=== PATIENT | female | born 1955 | race Hispanic/Latino ===

== ENCOUNTER 2020-09-25 00:43 | Emergency (ER) | payer BC ==
[~2020-09-25] VITALS: Ht 152.4 cm; Wt 73.5 kg
[2020-09-25 00:52] VITALS: BP 109/50
[2020-09-25 02:06] VITALS: BP 112/62
[2020-09-25] MEDS ORDERED: TETANUS/DIPHTHERIA TOXOID [ADULT] 0.5 ML VIAL IM ONE (03:15)
[2020-09-25] MEDS ORDERED: SULFAMETHOX-TMP DS 800/160 TAB PO SCH (03:15)
[2020-09-25] MEDS ORDERED: SULF1TAB42 PO (03:18)
[2020-09-25 03:43] VITALS: BP 128/76
== END 2020-09-25 03:48 | disposition home or self-care (01) ==
LOC: EDH 00:51
DX: S40.021A Contusion of right upper arm, initial encounter (principal); E03.9 Hypothyroidism, unspecified; E11.9 Type 2 diabetes mellitus without complications; Z91.041 Radiographic dye allergy status; Z90.710 Acquired absence of both cervix and uterus; W11.XXXA Fall on and from ladder, initial encounter; Y93.89 Activity, other specified; Y92.89 Other specified places as the place of occurrence of the external cause; Y99.8 Other external cause status
CPT/HCPCS: 73060; 90471; 90714

== ENCOUNTER 2021-06-26 04:37 | Observation (INO) | payer BC ==
[~2021-06-26] VITALS: Ht 152.4 cm; Wt 73.0 kg
[~2021-06-26 04:37] MED LIST: SULF1TAB42 PO
[2021-06-26] MEDS ORDERED: ONDANSETRON 4MG INJ IVP ONE (05:00)
[2021-06-26] MEDS ORDERED: MORPHINE 4 MG SYG IV ONE (05:00)
[2021-06-26 05:07] LABS: BASOPHILS % (AUTO) 0.4 % (0.0-5.0); EOSINOPHILS % (AUTO) 1.4 % (0.0-8.0); HEMATOCRIT 43.1 % (36-48); LYMPHOCYTES % (AUTO) 14.7 % (21.0-51.0); MEAN CORPUSCULAR HEMOGLOBIN 31.4 pg (27.0-33.0); MEAN CORPUSCULAR HGB CONC 34.6 g/dL (32.0-36.0); MEAN CORPUSCULAR VOLUME 90.9 fL (79-99); MONOCYTES % (AUTO) 7.8 % (3.0-13.0); NEUTROPHILS % (AUTO) 75.2 % (40.0-77.0); PLATELET COUNT (AUTO) 203 K/uL (130-400); RED BLOOD CELL COUNT(AUTO) 4.74 MIL/uL (4.00-5.50); RED CELL DISTRIBUTION WIDTH 11.9 % (11.0-15.5); WHITE BLOOD COUNT (AUTO) 12.9 K/uL (4.8-10.8)
[2021-06-26 05:42] LABS: BILIRUBIN,TOTAL 0.5 mg/dL (0.2-1.0); POTASSIUM 4.4 mmol/L (3.5-5.1); TOTAL PROTEIN, SERUM 8.8 g/dL (6.0-8.3)
[2021-06-26] MEDS ORDERED: HYDRALAZINE 20MG/ML VIAL IV PRN (10:00)
[2021-06-26] MEDS ORDERED: ACETAMINOPHEN 325 MG TAB PO PRN ×2 (10:00)
[2021-06-26] MEDS ORDERED: ONDANSETRON 4MG INJ IV PRN (10:00)
[2021-06-26] MEDS ORDERED: CEFTRIAXONE 1G VIAL ONE (10:18)
[2021-06-26] MEDS ORDERED: AZITHROMYCIN 250 MG TABLET PO ONE (10:19)
[2021-06-26] MEDS ORDERED: AZITHROMYCIN 250 MG TABLET PO SCH (10:30)
[2021-06-26] MEDS ORDERED: CEFTRIAXONE 1G VIAL IVP SCH (10:30)
[2021-06-26 10:47] LABS: HEMOGLOBIN A1C 6.6 % (4.0-6.0)
[2021-06-26] MEDS: INSULIN HUMULIN R 100 UNIT/ML 3ML SQ SCH ×2 (12:34→16:30)
[2021-06-26 16:27] VITALS: BP 115/55
[2021-06-26] MEDS ORDERED: FAMOTIDINE 20MG VIAL IV SCH (21:00)
[2021-06-27] MEDS ORDERED: ENOXAPARIN SODIUM 40 MG/0.4 ML SYRINGE SQ SCH (09:00)
== END 2021-06-26 20:00 | disposition left against medical advice (07) ==
LOC: EDH 04:37 → EDHIP 09:49
PROVIDERS: ADMIT Hospitalist; ATTEND Hospitalist
DX: R07.89 Other chest pain (principal); E11.65 Type 2 diabetes mellitus with hyperglycemia; I26.09 Other pulmonary embolism with acute cor pulmonale; J18.9 Pneumonia, unspecified organism; R07.82 Intercostal pain; R77.8 Other specified abnormalities of plasma proteins; D72.829 Elevated white blood cell count, unspecified; Z98.891 History of uterine scar from previous surgery; Z79.899 Other long term (current) drug therapy; Z98.890 Other specified postprocedural states; W18.30XA Fall on same level, unspecified, initial encounter; Y92.89 Other specified places as the place of occurrence of the external cause; Y93.89 Activity, other specified; Y99.8 Other external cause status
CPT/HCPCS: 36415; 71250; 78582; 80053; 82550; 82948 ×2; 83036; 83690; 84484; 85025; 85378; 87635; 93005; 96372; 96374; 96375; 97161; 99285; A9540; A9558; G0378 ×8; J0696; J1815; J2270; J2405